=== PATIENT | female | born 1990 | race Hispanic/Latino ===

== ENCOUNTER 2016-10-17 21:58 | Emergency (ER) | payer OTHER ==
[2016-10-17 22:04] VITALS: BP 120/70; PULSE 72; RESP 16; TEMP 98; O2SAT 100
[2016-10-17] MEDS ORDERED: Sodium Chloride 0.9% 1,000 ML IV SCH (23:15)
--- NOTE | 2016-10-17 23:26 | ED PDOC ---
HPI: Abdomen Chief Complaint (Provider): Abd/Back Pain w vaginal bleeding History Per: Patient History/Exam Limitations: no limitations Onset/Duration Of Symptoms: Days (1) Current Symptoms Are (Timing): Still Present Severity: Severe Pain Scale Rating Of: 8 Location Of Pain/Discomfort: RLQ, LLQ, Suprapubic Quality Of Discomfort: Cramping Associated Symptoms: Back Pain (radiates to lower back) Exacerbating Factors: None Alleviating Factors: None Abnormal Vaginal Bleeding: No Last Menstral Period: Today : 0 Para: 0 <Avery Domínguez - Last Filed: 10/18/16 01:56> <Rand Cabello - Last Filed: 10/18/16 05:31> Time Seen by Provider: 10/17/16 22:09 Chief Complaint (Nursing): Abdominal Pain Additional Complaint(s): 25 yo F w/o PMHx presents to ED w abdominal pain/cramps radiating to b/l back for entire day, beginning this morning. Pt states +vaginal bleeding, but she is on the first day of her menstrual cycle and that she is not experiencing an increase in bleeding. Her previous period was Sep 26, despite a previous history of regular cycles. She's never experienced overly painful menstrual cramp until Sep 26 and again today, though today is much worse than the previous cycle. Pt last had sex with a man 6 years prior as she is now to a woman. She denies f/c/n/v/d/c, headaches, chest pain, sob, dyspnea, cough, or dysuria. (Avery Domínguez) Past Medical History - Family History Family History: States: No Known Family Hx <Avery Domínguez - Last Filed: 10/18/16 01:56> <Rand Cabello - Last Filed: 10/18/16 05:31> Vital Signs: Last Vital Signs Temp 98 F 10/17/16 22:01 Pulse 72 10/17/16 22:01 Resp 16 10/17/16 22:01 BP 120/70 10/17/16 22:01 Pulse Ox 100 10/18/16 01:56 - Allergies Allergies/Adverse Reactions: Allergies Allergy/AdvReac Type Severity Reaction Status Date / Time No Known Allergies Allergy Verified 10/17/16 22:01 Review of Systems ROS Statement: Except As Marked, All Systems Reviewed And Found Negative <Avery Domínguez T - Last Filed: 10/18/16 01:56> Physical Exam - Physical Exam Appears: Positive for: Non-toxic, No Acute Distress Head Exam: Positive for: ATRAUMATIC, NORMAL INSPECTION, NORMOCEPHALIC Skin: Positive for: Normal Color, Warm, Dry Eye Exam: Positive for: Normal appearance, EOMI, PERRL ENT: Positive for: Normal ENT Inspection Neck: Positive for: Normal, Painless ROM, Supple Cardiovascular/Chest: Positive for: Regular Rate, Rhythm. Negative for: Edema Respiratory: Positive for: Normal Breath Sounds. Negative for: Crackles, Rhonchi Pulses-Post. Tibialis (L): 2+ Pulses-Post. Tibialis (R): 2+ Gastrointestinal/Abdominal: Positive for: Normal Exam, Bowel Sounds, Soft, Tenderness (+throughout, worse b/l LQ and suprapubic). Negative for: Distended , Rebound Back: Positive for: Normal Inspection. Negative for: L CVA Tenderness, R CVA Tenderness, Vertebral Tenderness Extremity: Positive for: Normal ROM. 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 <Avery Domínguez T - Last Filed: 10/18/16 01:56> - Laboratory Results Result Diagrams: 10/17/16 23:24 10/17/16 23:24 - ECG O2 Sat by Pulse Oximetry: 100 - Progress Re-evaluation Time: 01:00 (U/S normal, labs wnl) Condition: Re-examined, Improved <Avery Domínguez T - Last Filed: 10/18/16 01:56> - Laboratory Results Result Diagrams: 10/17/16 23:24 10/17/16 23:24 - ECG O2 Sat by Pulse Oximetry: 100 (RA) Pulse Ox Interpretation: Normal - CT Scan/US Transvaginal US Other Rad Studies (CT/US): Interpreted By Me, Read By Radiologist, Radiology Report Reviewed <Rand Cabello Y - Last Filed: 10/18/16 05:31> - Progress ED Course And Treament: 25 yo F w/o PMHx presents to ED w abdominal pain/cramps radiating to b/l back for entire day, since this morning -CBC -CMP -Upreg -UA -NS 1L -Toradol 30mg IVP x1 (Avery Domínguez) Medical Decision Making <Avery Domínguez - Last Filed: 10/18/16 01:56> <Rand Cabello - Last Filed: 10/18/16 05:31> Medical Decision Makin:35 Transvaginal Ultrasound Results FINDINGS: Uterus/cervix: Unremarkable. Normal endometrial stripe thickness. No myometrial mass. Right ovary: There are multiple small follicles in the right ovary with a central probable degenerating follicle with peripheral blood flow. Left ovary: Unremarkable. No mass. Normal blood flow. Free fluid: No free fluid. IMPRESSION: Normal pelvic ultrasound. 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 Instructions: Abdominal Pain (ED)
[2016-10-17 23:27] LABS: BASO # 0.1 K/uL (0.0-0.2); BASO % 0.7 % (0.0-2.0); EOS # 0.1 K/uL (0.0-0.7); EOS % 0.7 % (0.0-4.0); HEMATOCRIT 39.3 % (34.0-47.0); LYMPH # 2.2 K/uL (1.0-4.3); LYMPH % 17.9 % (20.0-40.0); MEAN CORPUSCULAR HEMOGLOBIN 31.5 pg (27.0-31.0); MEAN CORPUSCULAR HGB CONC 33.2 g/dL (33.0-37.0); MEAN PLATELET VOLUME 7.5 fl (7.2-11.7); MONO # 0.9 K/uL (0.0-0.8); MONO % 6.9 % (0.0-10.0); NEUT # 9.2 K/uL (1.8-7.0); NEUT % 73.8 % (50.0-75.0); RED CELL DISTRIBUTION WIDTH 13.1 % (11.5-14.5); WHITE BLOOD COUNT 12.5 K/uL (4.8-10.8)
[2016-10-18] LABS: ALB/GLOB RATIO 1.5 (1.0-2.1); ALKALINE PHOSPHATASE 37 U/L (38-126); ALT/SGPT 25 U/L (9-52); AST/SGOT 36 U/L (14-36); BILIRUBIN,TOTAL 0.3 mg/dl (0.2-1.3); BLOOD UREA NITROGEN 18 mg/dl (7-17); CALCIUM 9.3 mg/dL (8.4-10.2); CARBON DIOXIDE 27 mmol/L (22-30); CHLORIDE 102 mmol/L (98-107); GFR AFRICAN-AMERICAN > 60; GLUCOSE,RANDOM 112 mg/dL (65-105); POTASSIUM 4.4 MMOL/L (3.6-5.0); SODIUM 139 mmol/l (132-148); TOTAL PROTEIN 7.1 G/DL (6.3-8.2)
--- NOTE | 2016-10-18 13:05 | US ---
PROCEDURE: HISTORY: abd/back cramping w vaginal bleeding COMPARISON: TECHNIQUE: FINDINGS: The uterus measures 6.3 x 4.8 x 2.0 centimeters. The endometrium measures 4 millimeters. The endometrium has a normal appearance. The right ovary measures 3.6 x 2.1 x 2.4 centimeters. Left ovary measures 1.9 x 1.4 x 1.2 centimeters. There is no free fluid the pelvis. IMPRESSION: Unremarkable pelvic ultrasound.
== END 2016-10-18 02:01 | disposition home or self-care (01) ==
LOC: H.ER 21:58
DX: R10.31 Right lower quadrant pain (principal); N93.9 Abnormal uterine and vaginal bleeding, unspecified; L72.9 Follicular cyst of the skin and subcutaneous tissue, unspecified